=== PATIENT | female | born 1945 | race Caucasian/White ===

== ENCOUNTER 2017-02-12 23:04 | Emergency (ER) | payer OTHER ==
[~2017-02-12] VITALS: Ht 157.5 cm; Wt 56.8 kg
[2017-02-12] MEDS ORDERED: INDOCIN50 MG PO (23:48)
[2017-02-12] MEDS ORDERED: PERCOCET 5/31 TABLET PO (23:48)
[2017-02-13 00:43] VITALS: BP 112/61
== END 2017-02-13 00:45 | disposition home or self-care (01) ==
LOC: EME 23:04 → EXP 23:04
DX: M10.9 Gout, unspecified (principal); M06.9 Rheumatoid arthritis, unspecified
CPT/HCPCS: 99281; 99284